=== PATIENT | female | born 1995 | race Caucasian/White ===

== ENCOUNTER 2025-01-01 13:11 | Observation (INO) | payer MEDICAID, SELFPAY ==
[2025-01-01] VITALS (16 sets, daily range): BP systolic 112; BP diastolic 69; PULSE 95–114; RESP 16–97; TEMP 36.7; O2SAT 96–99; BMI 30.6
[2025-01-01 13:49] LABS: ROM Kit Lot # 578010271; Swb Mxed in Solvent 1 min? Yes
[2025-01-01 13:50] LABS: ROM Swab Mixed By: JL
[2025-01-01 13:52] LABS: Collection Type, Urine Clean Catch
[2025-01-01 14:04] LABS: Rupture of Fetal Membranes Negative (Negative)
[2025-01-01 14:06] LABS: Amorphous Crystals,Urine Present (Absent); Bacteria,Urine Rare; Bilirubin,Urine Negative (Negative); Blood,Urine Negative (Negative); Color,Urine Yellow (Lt Yel-Yel); Glucose, Urine Negative (Negative); Ketones,Urine 1+ (Negative); Leukocyte Esterase,Urine Negative (Negative); Nitrite,Urine Negative (Negative); PH,Urine 6.5 (5.0-7.0); Protein,Urine Trace (Neg - Trace); RBC,Urine 7 /hpf (0-3); Specific Gravity,Urine 1.019 (1.001-1.035); Squamous Epithelial Cell,Urine 2 /hpf (0-5); WBC,Urine 9 /hpf (0-5)
[2025-01-01 14:10] LABS: Clarity,Urine Hazy (Clear/Hazy)
== END 2025-01-01 15:20 | disposition home or self-care (01) ==
PROVIDERS: Admitting Provider Obstetrics & Gynecology; Visit Provider Obstetrics & Gynecology
DX: Z34.83 Encounter for supervision of other normal pregnancy, third trimester (principal); Z3A.33 33 weeks gestation of pregnancy
CPT/HCPCS: 59025; 59899; 81001; 84112

== ENCOUNTER 2025-01-14 12:59 | Outpatient (AMB) | payer MEDICAID, SELFPAY ==
[2025-01-14 13:15] VITALS: BP 111/72; PULSE 98; RESP 17; TEMP 36.5; O2SAT 97; BMI 29.5
--- NOTE | 2025-01-14 13:15 | OBCLNT_ITS ---
Vital Signs 01/14/25 13:15 Height 1.55 m Height Method Measured Weight 70.931 kg Weight Measurement Method Standing Scale BMI 29.5 BP 111/72 Blood Pressure Source Automatic Cuff Blood Pressure Location Right Upper Arm Position Sitting Respiration 17 Pulse 98 Pulse Source Monitor Temp 97.7 F Temp Source Temporal Artery Scan Pulse Oximetry (%) 97 Oxygen Delivery Method Room Air Allergies/Home Meds Allergies & Medications Allergies No Known Allergies Allergy (Verified 01/14/25 13:15) Medication Reconciliation vitamin with calcium no.72-iron 27 mg-folic acid 1 mg tablet ( Vitamins Plus Low Iron) 1 tab PO QDAY #90 tabs 05/13/21 [Rx Confirmed 01/14/25] Intake Visit Data Collection New Patient or Established: Established Patient (seen at [facility] within 3 years) Reason for Visit:: OB TRANSFER Consent obtained for Telemed Visit: No Seen by Clinical Staff ONLY (RN/MA): No Plumbing Designer Required: No Do You Feel Safe at Home: Yes Authorities Contacted: N/A PCP or OBGYN visit in last 3 months: Yes Date of Last PCP or OBGYN visit: 01/01/25 Hx Now: Yes Are you currently on any form of Control: No Pain Present Currently: No Pain Scale Used: Ly-Dang/Numerical Pain scale:: 0 Smoking Status Smoking Status: Former smoker Questionnaires Covid-19 Vaccine Questionnaire Has patient been vacinated for Covid-19 Have you been vacinated for Covid-19: No PHQ-9 PHQ-2 Over the last 2 weeks, how often have you been bothered by any of the following problems? 1. Little interest or pleasure in doing things: not at all 2. Feeling down, depressed, or hopeless: not at all Total score: 0 PHQ-9 3. Trouble falling or staying asleep, or sleeping too much: Not at all 4. Feeling tired or having little energy: Not at all 5. Poor appetite or overeating: Not at all 6. Feeling bad about yourself - or that you are a failure or have let yourself or your family down: Not at all 7. Trouble concentrating on things, such as reading the newspaper or watching television: Not at all 8. Moving or speaking so slowly that other people could have noticed? - Or the opposite - being so fidgety or restless that you have been moving around a lot more than usual: not at all 9. Thoughts that you would be better off or of hurting yourself in some way: Not at all Total score: 0 If you checked off any problems, how difficult have these problems made it for you to do your work, take care of things at home, or get along with other people?: not difficult at all Source: Developed by Drs. Tino Abdi, Edna Rasmussen, Thony Umana and colleagues, with an educational vinicio from [employer]. Social History Living Situation History Marital Status: Lives With: Children Housing: House Tobacco History Smoking Status: Former smoker Second Hand Smoke Exposure: Yes Alcohol History Alcohol Intake: Former Substance Use History Substance Use: THC Domestic Abuse History Do You Feel Safe at Home: Yes History of Present Illness HPI Narrative Yesy Walton, , presents for routine visit at 36 weeks gestation. No contractions, LOF, VB and reports good FM. Denies SAMUEL, VC, and epigastric pain. - Yesy Walton is a 29-year-old female, , at 36 weeks gestation transfer ring care on referral from Dr. Marinelli at [facility]. 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 Medical History Past Medical History: No Hx Neurological Disorders, No Hx Cardiac Disorders, No Hx Cancer, Yes Hx Blood Disorders, Yes Hx Anemia (DURING THIS ), No Hx Gastrointestinal Disorders, No Hx Renal Disease, No Hx Diabetes Mellitus Type 1 and No Hx Diabetes Mellitus Type 2 OB Initial Visit OB Flowsheet OB Flowsheet Initial Weight: Not Recorded Date -?-?-?-?-?-?-?-?-?-?-?-?- EGA Weight BP Alb Glu CTX Pres Fundal ht FHR Mov Dilation Station Effacement Hx Notes Visit Note 01/14/25 -?-?-?-?-?-?-?-?-?-?-?-?- 35w 5d 70.931 kg 111/72 occasional unknown 37 137 active 36w here for routine visit. No CTX/LOF/VB, FM good. Referred from Dr. Marinelli. Hx anemia, 1hr GTT 165, A1c 5.3%. Prior L&D visit for CTX/LOF?now resolved. FHR 137, cephalic on US. Plan: urgent 3hr GTT, f/u in 2w. Menstrual History Menstrual reliability: definite Flow: normal Menstrual regularity: regular Monthly: Yes Age at menarche: 12 On control pills at conception: No Date of positive home test: 06/11/24 OB History : 7 Para: 4 Hx # Pregnancies: 0 Hx Total # of Abortions (Spontaneous & Elective): 2 # of Living Children: 4 Delivery History 1st : sex: female Gestational age at delivery (weeks): 40 Delivery type: vaginal weight (lbs): 2721.554 g History of depression before or after : No 2nd : sex: male Gestational age at delivery (weeks): 39 Delivery type: vaginal weight (lbs): 2721.554 g History of depression before or after : No 3rd : sex: male Gestational age at delivery (weeks): 39 Delivery type: vaginal weight (lbs): 2721.554 g History of depression before or after : No 4th : sex: male Gestational age at delivery (weeks): 39 Delivery type: vaginal weight (lbs): 3492.661 g History of depression before or after : No Infection History & Risk Evaluation History of STDs: none HIV risk evaluation: low risk Hepatitis B risk evaluation: low risk Patient or partner has history of Genital Herpes: No Genetic Screening & History Genetic Screening/Teratology Counseling - Includes patient, baby's father, or anyone in either family with: 1. Patient's age 35 years or older as of estimated date of delivery: No 2. Thalassemia (Eritrean, Jamaican, Mediterranean, or Background); MCV less than 80: No 3. Neural Tube Defect (Meningomyelocele, Spina Bifida, or Anencephaly): No 4. Congenital Heart Defect: No 5. Down Syndrome: No 6. James-Sachs (Ashkenazi Amish, Cajun, Pashto Micronesian): No 7. Chantal Disease (Ashkenazi Amish): No 8. Familial Dysautonomia (Ashkenazi Amish): No 9. Sickle Cell Disease or Trait (): No 10. Hemophilia or other blood disorders: No 11. Muscular Dystrophy: No 12. Cystic Fibrosis: No 13. [place]'s Chorea: No 14. Mental Retardation/Autism: Yes 15. Other inherited genetic or chromosomal disorder: No 16. Maternal Metabolic Disorder (EG,TYPE 1 Diabetes, PKU): No 17. Patient or baby's father had a child with defects not listed above: No 18. Recurrent loss or a stillbirth: No 19. Medications (including supplements, vitamins, herbs or otc drugs)/illicit/recreational drugs/alcohol since last menstrual period: No 20. Any other: No Infection History Other (see comments) Source: [employer] Exam General General Appearance: alert, in no apparent distress and healthy appearing Head Head exam: atraumatic Neck Neck exam: Present normal inspection and trachea midline Chest Chest inspection: Present normal inspection and symmetric chest wall rise External exam: Present normal external exam; Absent tenderness Neuro Neurological exam: Present oriented X3 Psych Psychiatric exam: Present normal affect and normal mood Office Procedures OB Clinic LOC & Office Proc's Nursing/Assessment Patient Status: Established Patient OB Clinic Nursing Assessment: Medication Reconciliation, Update PMH in EMR and Vital Signs OB Clinic Coordination of Care: Complex Care and Chronic Disease 1-5, Consent,records obtained, informed consent, 4+ Authorizations needed, Lab and Im aging orders and Results/Orders obtained Special Needs: Heart tones Established Patient Charge Established Patient Point Assignment: 135 Established Patient Point Charge: EP Level 4 (120-155) Assessment & Plan Diagnosis / Problem List (1) Grand multiparity: Status: Acute (2) Abnormal glucose affecting : Status: Acute (3) Anemia affecting in third trimester: Status: Acute (4) Supervision of high risk , unspecified, third trimester: Status: Acute
== END 2025-01-14 13:40 | disposition home or self-care (01) ==
LOC: HODSOBC 12:59
PROVIDERS: Supervising Provider Obstetrics & Gynecology; Visit Provider Obstetrics & Gynecology
DX: O09.893 Supervision of other high risk pregnancies, third trimester (principal); O99.013 Anemia complicating pregnancy, third trimester; O99.810 Abnormal glucose complicating pregnancy; Z3A.35 35 weeks gestation of pregnancy
CPT/HCPCS: 99214; G0463

== ENCOUNTER 2025-01-29 09:54 | Outpatient (AMB) | payer MEDICAID, SELFPAY ==
[2025-01-29 10:21] VITALS: BP 109/71; PULSE 87; RESP 17; TEMP 36.6; O2SAT 98; BMI 29.5
--- NOTE | 2025-01-29 10:21 | AMB.OBVISIT ---
Vital Signs 01/29/25 10:21 Height 1.55 m Height Method Measured Weight 70.931 kg Weight Measurement Method Standing Scale BMI 29.5 BP 109/71 Blood Pressure Source Automatic Cuff Blood Pressure Location Right Upper Arm Position Sitting Respiration 17 Pulse 87 Pulse Source Monitor Temp 97.9 F Temp Source Temporal Artery Scan Pulse Oximetry (%) 98 Oxygen Delivery Method Room Air Allergies/Home Meds Allergies & Medications Allergies No Known Allergies Allergy (Verified 01/29/25 10:22) Medication Reconciliation vitamin with calcium no.72-iron 27 mg-folic acid 1 mg tablet ( Vitamins Plus Low Iron) 1 tab PO QDAY #90 tabs 05/13/21 [Rx Confirmed 01/29/25] blood sugar diagnostic (Blood Glucose Test strips) #50 ea 01/29/25 [Rx] blood-glucose meter #1 ea 01/29/25 [Rx] lancets #100 ea 01/29/25 [Rx] Intake Visit Data Collection New Patient or Established: Established Patient (seen at [facility] within 3 years) Reason for Visit:: OBC Consent obtained for Telemed Visit: No Seen by Clinical Staff ONLY (RN/MA): No Roofer Metal Required: No Do You Feel Safe at Home: Yes Authorities Contacted: N/A PCP or OBGYN visit in last 3 months: Yes Date of Last PCP or OBGYN visit: 01/14/25 Hx Now: Yes Are you currently on any form of Control: No Pain Present Currently: No Pain Scale Used: Ly-Dang/Numerical Pain scale:: 0 Smoking Status Smoking Status: Former smoker Questionnaires Covid-19 Vaccine Questionnaire Has patient been vacinated for Covid-19 Have you been vacinated for Covid-19: No PHQ-9 PHQ-2 Over the last 2 weeks, how often have you been bothered by any of the following problems? 1. Little interest or pleasure in doing things: not at all PHQ-9 8. Moving or speaking so slowly that other people could have noticed? - Or the opposite - being so fidgety or restless that you have been moving around a lot more than usual: not at all Source: Developed by Drs. Tino Abdi, Edna Rasmussen, Thony Umana and colleagues, with an educational vinicio from [employer]. 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 No CTX/LOF/VB, FM good. Referred from Dr. Marinelli. Hx anemia, 1hr GTT 165, A1c 5.3%. Prior L&D visit for CTX/LOF?now resolved. FHR 137, cephalic on US. Plan: urgent 3hr GTT, f/u in 2w. 01/29/25 <del>?</del> 37w 6d 70.931 kg 109/71 occasional unknown 38 147 active at 37w6d with CTX and 1cm dilation, FM+, FHR 147. GDM dx by abnormal 1hr GTT, missed 3hr GTT. Plan: Send glucometer to [facility], 4x/day FS for 3 days (FBS, 1hr PPx3), f/u with Maki next week, Dr. Leyva in 2 weeks. MALLORY Calculator Estimated Delivery Date Method Current WG Current Estimate 02/13/25 LMP (Certain) 37w 6d Office Procedures OB Clinic LOC & Office Proc's Nursing/Assessment Patient Status: Established Patient OB Clinic Nursing Assessment: Medication Reconciliation, Update PMH in EMR and Vital Signs OB Clinic Coordination of Care: Complex Care/Chronic Disease 5 or more, Consent,records obtained, informed consent and 4+ Authorizations needed Special Needs: Heart tones Established Patient Charge Established Patient Point Assignment: 125 Established Patient Point Charge: EP Level 4 (120-155) Assessment & Plan Diagnosis / Problem List (1) Abnormal glucose affecting : Status: Acute
== END 2025-01-29 11:22 | disposition home or self-care (01) ==
LOC: HODSOBC 09:54
PROVIDERS: Supervising Provider Obstetrics & Gynecology; Visit Provider Obstetrics & Gynecology
DX: O09.893 Supervision of other high risk pregnancies, third trimester (principal); O99.810 Abnormal glucose complicating pregnancy; Z3A.37 37 weeks gestation of pregnancy; Z87.891 Personal history of nicotine dependence
CPT/HCPCS: 99214; G0463

== ENCOUNTER 2025-02-05 13:00 | Observation (INO) | payer MEDICAID, SELFPAY ==
[2025-02-05 13:17] VITALS: BP 114/70; PULSE 99
[2025-02-05 13:27] VITALS: BP 114/70; PULSE 117; PULSE 94; RESP 16; RESP 97; TEMP 36.6; O2SAT 98; BMI 29.7
[2025-02-05 13:32] VITALS: PULSE 99; O2SAT 98
[2025-02-05 13:37] VITALS: PULSE 100; O2SAT 97
[2025-02-05 13:42] VITALS: PULSE 107; O2SAT 97
[2025-02-05 14:01] LABS: Collection Type, Urine Clean Catch
[2025-02-05 14:18] LABS: Bacteria,Urine Rare; Bilirubin,Urine Negative (Negative); Blood,Urine Negative (Negative); Clarity,Urine Clear (Clear/Hazy); Color,Urine Yellow (Lt Yel-Yel); Culture Indicated,Urine Not Indicated; Glucose, Urine Negative (Negative); Ketones,Urine Negative (Negative); Leukocyte Esterase,Urine Negative (Negative); Nitrite,Urine Negative (Negative); PH,Urine 7.5 (5.0-7.0); Protein,Urine Negative (Neg - Trace); RBC,Urine 1 /hpf (0-3); Specific Gravity,Urine 1.012 (1.001-1.035); Squamous Epithelial Cell,Urine 3 /hpf (0-5); Urobilinogen,Urine 3.0 mg/dL (0.0-1.0); WBC,Urine 3 /hpf (0-5)
[2025-02-05 14:40] LABS: ROM Kit Exp Date# 111527; ROM Kit Lot # 58102387; ROM Swab Mixed By: AA; Swb Mxed in Solvent 1 min? Yes
[2025-02-05 14:41] LABS: Rupture of Fetal Membranes Negative (Negative)
[2025-02-05 15:57] LABS: ROM Kit Lot # 58102387; ROM Swab Mixed By: ASTOA1; Swb Mxed in Solvent 1 min? Yes
[2025-02-05 16:04] LABS: Rupture of Fetal Membranes Negative (Negative)
== END 2025-02-05 16:37 | disposition home or self-care (01) ==
PROVIDERS: Admitting Provider Obstetrics & Gynecology; Visit Provider Obstetrics & Gynecology
DX: O26.893 Other specified pregnancy related conditions, third trimester (principal); Z3A.38 38 weeks gestation of pregnancy; M54.9 Dorsalgia, unspecified; O41.8X30 Other specified disorders of amniotic fluid and membranes, third trimester, not applicable or unspecified
CPT/HCPCS: 59025; 59899; 81001; 84112

== ENCOUNTER 2025-02-12 13:08 | Outpatient (AMB) | payer MEDICAID, SELFPAY ==
[2025-02-12 13:20] VITALS: BP 119/76; PULSE 90; RESP 18; TEMP 36.6; O2SAT 98; BMI 29.8
--- NOTE | 2025-02-12 13:20 | AMB.OBVISIT ---
Vital Signs 02/12/25 13:20 Height 1.55 m Height Method Stated Weight 71.724 kg Weight Measurement Method Standing Scale BMI 29.8 BP 119/76 Blood Pressure Source Automatic Cuff Blood Pressure Location Left Upper Arm Position Sitting Respiration 18 Pulse 90 Pulse Source Monitor Temp 97.9 F Temp Source Oral Pulse Oximetry (%) 98 Oxygen Delivery Method Room Air Allergies/Home Meds Allergies & Medications Allergies No Known Allergies Allergy (Verified 02/13/25 02:54) Medication Reconciliation vitamins with calcium no.72-iron 27 mg-folic acid 1 mg tablet ( Vitamins Plus Low Iron) 1 tab PO QDAY #90 tabs 05/13/21 [Rx Confirmed 02/13/25] blood sugar diagnostic (Blood Glucose Test strips) #50 ea 01/29/25 [Rx Confirmed 02/13/25] blood-glucose meter #1 ea 01/29/25 [Rx Confirmed 02/13/25] lancets #100 ea 01/29/25 [Rx Confirmed 02/13/25] Intake Visit Data Collection New Patient or Established: Established Patient (seen at [facility] within 3 years) Reason for Visit:: CARE Seen by Clinical Staff ONLY (RN/MA): No Lead Refinery Supervisor Required: No Do You Feel Safe at Home: Yes Authorities Contacted: N/A PCP or OBGYN visit in last 3 months: Yes Hx Now: Yes Are you currently on any form of Control: No Pain Present Currently: Yes Pain Location: Abdomen Pain Scale Used: Ly-Dang/Numerical Pain scale:: 8 Smoking Status Smoking Status: Former smoker Questionnaires Covid-19 Vaccine Questionnaire Has patient been vacinated for Covid-19 Have you been vacinated for Covid-19: Yes PHQ-9 PHQ-2 Over the last 2 weeks, how often have you been bothered by any of the following problems? 1. Little interest or pleasure in doing things: not at all 2. Feeling down, depressed, or hopeless: not at all Total score: 0 PHQ-9 3. Trouble falling or staying asleep, or sleeping too much: Not at all 4. Feeling tired or having little energy: Not at all 5. Poor appetite or overeating: Not at all 6. Feeling bad about yourself - or that you are a failure or have let yourself or your family down: Not at all 7. Trouble concentrating on things, such as reading the newspaper or watching television: Not at all 8. Moving or speaking so slowly that other people could have noticed? - Or the opposite - being so fidgety or restless that you have been moving around a lot more than usual: not at all 9. Thoughts that you would be better off or of hurting yourself in some way: Not at all Total score: 0 Source: Developed by Drs. Tino Abdi, Edna Rasmussen, Thony Umana and colleagues, with an educational vinicio from [facility]. 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 No CTX/LOF/VB, FM good. Referred from Dr. Marinelli. Hx anemia, 1hr GTT 165, A1c 5.3%. Prior L&D visit for CTX/LOF?now resolved. FHR 137, cephalic on US. Plan: urgent 3hr GTT, f/u in 2w. 01/29/25 <del>?</del> 37w 2d 70.931 kg 109/71 occasional unknown 38 147 active at 37w6d with CTX and 1cm dilation, FM+, FHR 147. GDM dx by abnormal 1hr GTT, missed 3hr GTT. Plan: Send glucometer to [facility], 4x/day FS for 3 days (FBS, 1hr PPx3), f/u with Maki next week, Dr. Leyva in 2 weeks. 02/12/25 <del>?</del> 39w 2d 71.724 kg 119/76 frequent cephalic 39 139 active - Yesy Walton is a 29-year-old female, 5 para 4, at 39 weeks and 2 days gestation, presenting for evaluation of discomfort and possible labor induction. - Patient reports: - Ongoing discomfort, particularly burning sensation in ribs - Active movement - Recent contractions, timing not specified - Recent healthcare interactions: - Hospital visit last Saturday (6 days ago) - Was reportedly dilated to 2 cm at that time - Current details: - Estimated due date: December 20, 2024 - GBS negative - Schedule induction for tomorrow (02/13/2025) - Patient to call [phone] at 7:30 AM for room assignment - Advise patient about potential cramping and bleeding following membrane sweep - Instruct patient to present to hospital if contractions begin before scheduled induction - Follow up with patient during induction process MALLORY Calculator Estimated Delivery Date Method Current WG Current Estimate 02/17/25 LMP (Certain) 44w 4d Office Procedures OB Clinic LOC & Office Proc's Nursing/Assessment Patient Status: Established Patient OB Clinic Nursing Assessment: Medication Reconciliation, Update PMH in EMR and Vital Signs OB Clinic Coordination of Care: Complex Care and Chronic Disease 1-5, Consent,records obtained, informed consent, Education Simp Pt/Fam, Lab and Imaging orders, Results/Orders obtained and Staff clarify orders Special Needs: Heart tones Miscellaneous Interventions: Pelvic no cultures Established Patient Charge Established Patient Point Assignment: 145 Established Patient Point Charge: EP Level 4 (120-155) Assessment & Plan Diagnosis / Problem List (1) Supervision of high risk , unspecified, third trimester: Status: Acute
== END 2025-02-12 15:12 | disposition home or self-care (01) ==
LOC: HODSOBC 13:08
PROVIDERS: Supervising Provider Obstetrics & Gynecology; Visit Provider Obstetrics & Gynecology
DX: O09.93 Supervision of high risk pregnancy, unspecified, third trimester (principal); Z3A.39 39 weeks gestation of pregnancy; Z87.891 Personal history of nicotine dependence
CPT/HCPCS: 99214; G0463

== ENCOUNTER 2025-02-13 02:10 | Inpatient (IN) | payer MEDICAID, SELFPAY ==
[2025-02-13] VITALS (223 sets, daily range): BP systolic 103–153; BP diastolic 58–104; PULSE 69–154; RESP 14–20; TEMP 36.7–37.3; O2SAT 85–100; BMI 29.7
--- NOTE | 2025-02-13 02:14 | XR_ITS ---
Examination: Complete OB ultrasound greater than 14 weeks Date and time of exam: February 13, 2025, 0249 hours INDICATIONS: Labor induction today, unknown presentation Findings: Viable intrauterine single fetus with single amniotic sac presentation Vertex Cardiac motion 1:30 BPM Placenta anterior grade 3 Umbilical cord insertion seen Amniotic fluid index 13.3 cm Ovaries obscured by the fetus. Composite estimated gestational age based on BPD, head circumference, abdominal circumference, femur length is 38 weeks 1 day Estimated weight 3297 g. Survey of intracranial anatomy, spinal anatomy, abdominal anatomy, four-chamber heart performed with no abnormalities identified. Impression: Viable intrauterine gestation in vertex presentation.
[2025-02-13 02:56] LABS: Basophils # (Auto) 0.0 Thou/mm3 (0.0-0.2); Basophils % (Auto) 0 % (0-2.5); Eosinophils # (Auto) 0.1 Thou/mm3 (0.0-0.5); Eosinophils % (Auto) 1 % (0-10); Hematocrit 31.5 % (36.0-46.0); Hemoglobin 9.8 g/dL (12.0-16.0); Immature Granulocytes Auto 0.04 Thou/mm3 (0.00-0.00); Lymphocytes # (Auto) 2.0 Thou/mm3 (1.0-4.8); Lymphocytes % (Auto) 22 % (10-50); Mean Corpuscular HGB Conc 31.1 g/dl (31.0-37.0); Mean Corpuscular Hemoglobin 24.6 pg (25.0-35.0); Mean Corpuscular Volume 79 fL (80-100); Monocytes # (Auto) 0.8 Thou/mm3 (0.0-0.8); Monocytes % (Auto) 9 % (0-12); Neutrophils # (Auto) 6.4 Thou/mm3 (1.8-7.7); Neutrophils % (Auto) 68 % (37-80); Nucleated Red Blood Cell # 0.00 Thou/mm3 (0.00-0.00); Nucleated Red Blood Cell % 0 /100 WBC (0); Platelet Count 217 Thou/mm3 (140-440); RDW Standard Deviation 42.7 fL (36.4-46.3); Red Blood Count 3.98 Miln/mm3 (4.00-5.20); White Blood Count 9.4 Thou/mm3 (3.6-11.0)
[2025-02-13 03:10] LABS: Amphetamine/Metham Scrn,Ur OB Negative (Negative); Benzoylecgonine Screen, Ur OB Negative (Negative); Opiate Screen,Urine OB Negative (Negative); THC Screen,Urine OB Negative (Negative)
[2025-02-13 03:36] LABS: Syphilis Nonreactive (Nonreactive)
--- NOTE | 2025-02-13 04:39 | PRELIM_ITS ---
Obstetric ultrasound with Doppler. February 13, 2025 0249 hours Clinical history: Late to Care, GDM Comparison: None. Findings: There is a gravid uterus with a live fetus in vertex presentation of mean gestational age 38 weeks and 1 day (by biometry). cardiac activity is present at a heart rate of 130 beats per minute. The placenta is anterior in location, maturity grade 3. There is no evidence of placenta previa or retroplacental hemorrhage. Amniotic fluid is adequate (PEDRO = 13.3 cm). Estimated weight is 3297 grams+/- 488 grams. The ovaries were not visualized. No abnormalities by Doppler. Impression: Gravid uterus with a single live fetus in vertex presentation of mean gestational age 38 weeks 1 day. Report Electronically Signed By: Nathan Suarez 02/13/2025 4:38:44 AM [EST]
[2025-02-13 06:00] LABS: HIV (1&2) Antibody Rapid Non-Reactive
--- NOTE | 2025-02-13 09:04 | PD.LDHP ---
Documentation for date of: 02/13/25 OB Labor/Induct. HPI History of Present Illness Chief complaint: induction : 5 Term pregnancies: 4 pregnancies: 0 Living children: 4 History of Abortions: Spontaneous and Elective: 0 History of sections: No History of : No Date of last menstrual period: 05/13/24 MALLORY: 02/17/25 Gestational Age (weeks): 39 Gestational Age (days): 3 Gestational age based on last menstrual period: 39 History of present illness: This is a 29-year-old 7 para 4 with 4 induction of labor. Patient has GDM on diet with good control. She has otherwise uneventful . Reports movement. Denies signs symptoms of labor at this time. Patient is B+, antibody screen negative, RPR nonreactive, rubella immune, hepatitis B negative, hep C negative, HIV negative, GC and Chlamydia were negative. Her A1c was 5.3. Her NIPT, AFP and carrier screens were all negative. And GBS is negative. Patient was seen at Dr. Jeffrey's beginning early in the . History of Present Dating criteria: LMP confirmed by 1st trimester US Ultrasounds: normal 1st trimester US and normal mid trimester US Obstetrical complications: gestational diabetes Medical complications: none Labs Labs: Negative: RPR, Hepatitis B, HIV, Chlamydia, Gonorrhea and Group Beta Strep and Unknown: Rubella Titre, Herpes Type 1, Herpes Type 2 and Covid-19 Review of Systems Review of Systems Systems Reviewed: All systems reviewed, normal except as documented Past Medical History Surgical History SURGICAL: Negative Section Meds Home Medications and Allergies Allergies Allergy/AdvReac Type Severity Reaction Status Date / Time No Known Allergies Allergy Verified 02/13/25 02:54 OB Exam Physical Exam Vital signs: Temp Pulse Resp BP Pulse Ox 98.5 F 79 14 103/63 99 02/13/25 07:22 02/13/25 07:21 02/13/25 07:22 02/13/25 07:21 02/13/25 05:53 Narrative: Alert and oriented. Normal heart rate and rhythm. Lungs clear no wheezes. Gravid abdomen. Gynecoid pelvis. Estimated weight 7 pounds 8 ounces. Vaginal exam was -3. Vertex. Cord intact. heart rate category 1 with accelerations and moderate contractions Detailed Labor and Delivery Exam Dilation (cm): 2 Effacement (%): 50 Cervix position: mid station: -2 Consistency: soft Presentation: Vertex Cervical ripeness score: 4 Membranes: intact Baseline heart rate: 145 monitor accelerations: 15x15 monitor decelerations: None intermediate card tender variability: Moderate (11-25) Contraction frequency (min): irreg Contraction duration (sec): 30 Tachysystole: No Contraction intensity: Mild OB Results Labs 02/13/25 02:40 Labs: Short CBC 02/13/25 Range/Units 02:40 WBC 9.4 (3.6-11.0) Thou/mm3 Hgb 9.8 L (12.0-16.0) g/dL Hct 31.5 L (36.0-46.0) % Plt Count 217 (140-440) Thou/mm3 OB Assessment & Plan Assessment and Plan (1) Encounter for induction of labor: Status: Acute Additional Plan Induction method: per misoprostol protocol Plan: induction, augmentation, anticipate NVD and consult MD farah
[2025-02-13] MEDS: RINGERS LACTATED 1000 ML 1,000 ML 999 ML IV ×2 (09:20→12:47)
[2025-02-13] MEDS: OXYTOCIN in NS 30 units 30 UNIT/500 ML BAG IV (11:49)
[2025-02-13] MEDS: OXYTOCIN in NS 20 units 20 UNIT/1,000 ML BAG 125 UNIT IV (21:36)
[2025-02-13] MEDS: OXYTOCIN INJ 10 UNIT/ML VIAL IM (21:37)
[2025-02-13] MEDS: IBUPROFEN TAB 400 MG TABLET 800 MG PO (21:47)
[2025-02-13] MEDS: BENZO/LANO/ALOE (Dermoplast) 60 GM CAN 1 SPRAY TOP (21:48)
[2025-02-13] MEDS: TRANEXAMIC ACID 1,000 MG IVPB 1,000 MG/100 ML BAG 200 MG IV ×2 (21:48→22:55)
--- NOTE | 2025-02-13 21:56 | OBDSUM_ITS ---
Data (Andres) Data Hx Section: No : 7 Term: 4 : 0 Livin Abortions: Spontaneous & Theraputic: 0 Delivery Data (Andres) Labor Data Initiation of labor: Induction Induction/Augmentation Agent: Cytotec-PO, Pitocin and Artificial ROM ROM date: 02/13/25 ROM time: 18:42 Amniotic membrane rupture type: Artificial Amniotic fluid description: Clear Delivery Data EDC: 02/17/25 EDC calculated by:: LMP/early US confirmation Date of arrival to unit: 02/13/25 Time of arrival to unit: 02:10 Onset of labor date: 02/13/25 Onset of labor time: 20:20 Complete dilation date: 02/13/25 Complete dilation time: 21:20 delivery date: 02/13/25 delivery time: 21:31 Gestational age (weeks): 39 Gestational age (days): 3 Placenta delivery date: 02/13/25 Placenta delivery time: 21:38 Stage 1 total time: Labor - Stage 1 Duration 1 hours and 0 minutes Delivered by: Maki Magallanes Delivery nurse: Daniel Lazcano nurse: Khadra Pratt Shipping Support Clerk at delivery: No Support person(s) at delivery: FOB Delivery Method Delivery method: Normal Vaginal Delivery Presentation: Vertex position: OA Anesthesia Type Anesthesia Type: Epidural Delivery Room Medications Delivery room medications given: fentanyl Delivery room medications: Pitocin 10 u IM, Pitocin 20 u IV, Cytotec 800 PA and other (TXA x2) Placenta Placenta delivery description: Spontaneous Cord blood sent to lab: Yes cord blood collection: Cord Blood Type Episiotomy Episiotomy description: None (INtact) EBL Estimated blood loss (ml): 400 Umbilical Cord cord description: 3 Vessels and Nuchal Cord Data (Andres) Wilcox Data order: 1 's gender: Female Identification band number: [id number] weight (gms): 3655 g Weight (pounds): 8 lbs and 0.9 ozs length: 53.34 cm
[2025-02-14 03:39] VITALS: BP 110/72; PULSE 78; RESP 18; TEMP 36.9; O2SAT 97
[2025-02-14 07:53] VITALS: BP 112/76; PULSE 88; RESP 18; TEMP 36.6; O2SAT 97
[2025-02-14 08:04] LABS: Basophils # (Auto) 0.0 Thou/mm3 (0.0-0.2); Basophils % (Auto) 0 % (0-2.5); Eosinophils # (Auto) 0.1 Thou/mm3 (0.0-0.5); Eosinophils % (Auto) 0 % (0-10); Hematocrit 27.1 % (36.0-46.0); Immature Granulocytes Auto 0.06 Thou/mm3 (0.00-0.00); Lymphocytes # (Auto) 2.6 Thou/mm3 (1.0-4.8); Lymphocytes % (Auto) 17 % (10-50); Mean Corpuscular HGB Conc 31.4 g/dl (31.0-37.0); Mean Corpuscular Hemoglobin 24.7 pg (25.0-35.0); Mean Corpuscular Volume 79 fL (80-100); Monocytes # (Auto) 1.0 Thou/mm3 (0.0-0.8); Monocytes % (Auto) 7 % (0-12); Neutrophils # (Auto) 11.4 Thou/mm3 (1.8-7.7); Neutrophils % (Auto) 75 % (37-80); Nucleated Red Blood Cell # 0.00 Thou/mm3 (0.00-0.00); Nucleated Red Blood Cell % 0 /100 WBC (0); Platelet Count 188 Thou/mm3 (140-440); RDW Standard Deviation 43.5 fL (36.4-46.3); Red Blood Count 3.44 Miln/mm3 (4.00-5.20); White Blood Count 15.1 Thou/mm3 (3.6-11.0)
[2025-02-14 08:17] LABS: Hemoglobin 8.5 g/dL (12.0-16.0)
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
--- NOTE | 2025-02-14 09:21 | PD.LDPPPRG ---
Subjective Subjective Interval history: No complaints of pain. No dizziness. Bonding Exam Vital Signs Temp Pulse Resp BP Pulse Ox O2 Del Method 98 F 78 18 112/76 97 Room Air 02/14/25 07:53 02/14/25 03:39 02/14/25 07:53 02/14/25 07:53 02/14/25 07:53 02/14/25 07:53 Narrative Exam Midline episiotomy well-healed. While approximated. No signs of infection. No swelling. Small lochia. Uterus well involuted. To below. Nontender. Negative Homans' sign. 2+ DTRs Objective Labs 02/14/25 07:45 Labs: Laboratory Results - last 24 hr 02/14/25 07:45 WBC 15.1 H D RBC 3.44 L Hgb 8.5 L Hct 27.1 L MCV 79 L MCH 24.7 L MCHC 31.4 RDW Std Deviation 43.5 Plt Count 188 Neut % (Auto) 75 Lymph % (Auto) 17 Robeson % (Auto) 7 Eos % (Auto) 0 Baso % (Auto) 0 Neut # (Auto) 11.4 H Lymph # (Auto) 2.6 Robeson # (Auto) 1.0 H Eos # (Auto) 0.1 Baso # (Auto) 0.0 Immature Gran # (Auto) 0.06 H Absolute Nucleated RBC 0.00 Immature Gran % 0 Nucleated RBC % 0 Assessment & Plan Problem List (1) Encounter for induction of labor: Status: Acute Assessment Comment Assessment comment: 48 hr pp Plan Comment Plan Comment: Discharge home with baby. Continue vitamins and iron. Tylenol or ibuprofen for pain. I discussed danger signs and symptoms and ER precautions with parameters. Discussed signs symptoms of infection. Increase fluids. And rest. No sex. Discussed comfort measures and sitz bath's for midline episiotomy. Return in 3 weeks visit Time Spent With Patient Time: Total time spent is greater than 50% in coordination of care (as documented) at patient's floor/unit and/or counseling patient:
--- NOTE | 2025-02-14 09:23 | PD.LDDS ---
DS: Providers Provider Date of admission: 02/13/25 02:10 Primary care physician: Physician No Primary/Family Admitting Provider: Ned Leyva MD Attending Provider on Admission: Maki Magallanes CNM Consults: 02/13/25 22:15 Referral Routine Comment: Attending Provider on DC: Maki Magallanes CNM Discharging Provider: Maki Magallanes CNM DS: Diagnosis Problem List Completed Was Problem List Reviewed/Reconciled?: Yes Summary/Hosp Course Brief History: This is a 29-year-old 7 para 4 with 4 induction of labor. Patient has GDM on diet with good control. She has otherwise uneventful . Reports movement. Denies signs symptoms of labor at this time. Patient is B+, antibody screen negative, RPR nonreactive, rubella immune, hepatitis B negative, hep C negative, HIV negative, GC and Chlamydia were negative. Her A1c was 5.3. Her NIPT, AFP and carrier screens were all negative. And GBS is negative. Patient was seen at Dr. Jeffrey's beginning early in the . Peripartum Data Delivery Method: Normal Vaginal Delivery Episiotomy Description: Midline (INtact) Laceration Description: yes (vaginal) complications: none Time Spent with Patient Time attestation: Total time spent providing and/or coordinating discharge services: Exam Vital Signs Temp Pulse Resp BP Pulse Ox O2 Del Method 98 F 78 18 112/76 97 Room Air 02/14/25 07:53 02/14/25 03:39 02/14/25 07:53 02/14/25 07:53 02/14/25 07:53 02/14/25 07:53 Discharge Plan Plan Patient Disposition: HOME (Self Care) Patient condition on transfer: Stable Prescriptions/Referrals Prescriptions/Med Rec: No Action (DME) blood-glucose meter Kit See Rx Instructions .MEDSUPPLY Qty: 1 0RF Rx Instructions: As directed (DME) Blood Glucose Test Strip See Rx Instructions .MEDSUPPLY Qty: 50 0RF Rx Instructions: As directed (DME) lancets Misc See Rx Instructions .MEDSUPPLY Qty: 100 0RF Rx Instructions: As directed Vitamin Plus Low Iron 27 mg iron- 1 mg tablet 1 tab PO QDAY Qty: 90 0RF Referrals: No Primary/Family,Physician [Primary Care Provider] - Patient/Caregiver Discharge Instructions Meds to Beds: No Discharge Activity: resume usual activities Print Language: Lithuanian Activity Restrictions/Additional Instructions: Discharge home with baby. Continue vitamins and iron. Tylenol ibuprofen for pain. Discussed danger signs and symptoms and ER precautions with parameters. Discussed signs symptoms of infection. Discussed episiotomy care and sitz bath's and comfort measures. Increase fluids. No sex. Return in 3 weeks visit Stand Alone Forms: Samantha Award Info., Patient Portal Info Letter Discharge Order Discharge Orders: Discharge (Routine); Ordered 02/14/25 Ordered By: Maki Magallanes Planned Discharge Date 02/14/25
[2025-02-14] MEDS: IBUPROFEN TAB 400 MG TABLET 800 MG PO ×2 (10:52→19:21)
[2025-02-14 12:00] VITALS: BP 116/79; PULSE 89; RESP 18; TEMP 36.7; O2SAT 98
[2025-02-14 15:20] VITALS: BP 117/77; PULSE 92; RESP 18; TEMP 37; O2SAT 99
[2025-02-14 19:32] VITALS: BP 118/81; PULSE 81; RESP 16; TEMP 36.7; O2SAT 99
--- NOTE | 2025-02-14 23:39 | PC.NURSE ---
02/14/25 2200 pt state she wants to get the TDAP vaccine at her next DR visit.
[2025-02-15 05:53] LABS: Rubella, IgG Antibody NonReact(Not Immune)
== END 2025-02-14 23:14 | disposition home or self-care (01) | DRG 560 ==
LOC: S4SX 23:07 → S4NX 23:41
PROVIDERS: Admitting Provider Obstetrics & Gynecology; Visit Provider Advanced Practice Midwife
DX: O24.420 Gestational diabetes mellitus in childbirth, diet controlled (principal); O69.81X0 Labor and delivery complicated by cord around neck, without compression, not applicable or unspecified; Z37.0 Single live birth; Z3A.39 39 weeks gestation of pregnancy
CPT/HCPCS: 36415; 59409; 76805; 80307; 85025; 86703; 86762; 86780; 86850; 86900; 86901; 86923; 94762; J2590; J2795; J3010; J3490; J7120; S0191; A9270